=== PATIENT | female | born 1955 | race Asian ===

== ENCOUNTER 2017-03-26 12:54 | Day surgery (SDC) | payer OTHER ==
[2017-03-19 12:03] LABS: HEMATOCRIT 41.2 % (36.0-47.0); HGB HCT DIFFERENCE 0.8; MEAN CORPUSCULAR HEMOGLOBIN 31.4 pg (27.0-33.4); MEAN CORPUSCULAR HGB CONC 33.9 g/dL (32.0-36.0); MEAN CORPUSCULAR VOLUME 93 fl (80-97); RED BLOOD COUNT 4.46 10^6/uL (3.72-5.28); RED CELL DISTRIBUTION WIDTH 12.8 % (11.5-14.0); WHITE BLOOD COUNT 6.9 10^3/uL (4.0-10.5)
[2017-03-19 12:26] LABS: ANION GAP 14 (5-19); BLOOD UREA NITROGEN 12 mg/dL (7-20); CALCIUM 9.9 mg/dL (8.4-10.2); CARBON DIOXIDE 25 mmol/L (22-30); CHLORIDE 106 mmol/L (98-107); CREATININE RESULT 0.68 mg/dL (0.52-1.25); GLUCOSE 93 mg/dL (75-110); POTASSIUM 4.9 mmol/L (3.6-5.0); SODIUM 144.6 mmol/L (137-145)
--- NOTE | 2017-03-19 13:43 | EKG REPORT ---
SEVERITY:- BORDERLINE ECG - SINUS RHYTHM NONSPECIFIC ST-T CHANGES ANTERIOR LEADS : Confirmed by: Natan Rg MD 19-Mar-2017 13:42:27
[~2017-03-26 12:54] MED LIST: DEXAMETHASONE SOD PHOSPHATE INJ 4 MG/1 ML VIAL ONE; GLYCOPYRROLATE INJ 0.4 MG/2 ML VIAL ONE; KETOROLAC TROMETHAMINE 60 MG/2 ML SDV ONE; LACTATED RINGERS 1000 ML IV PRN; LEVOFLOXACIN 500 MG/D5W RTU 500 MG/100 ML RTUPB IV PRN; LIDOCAINE 0.5% INJ-PF (5 MG/ML) 50 ML SDV SUBCUT PRN; LIDOCAINE 2% INJ-PF (20 MG/ML) 2 ML AMPUL ONE; METOCLOPRAMIDE HCL INJ/PF 10 MG/2 ML SDV ONE; ONDANSETRON HCL INJ/PF 4 MG/2 ML SDV ONE; PHENYLEPHRINE HCL INJ/PF 10 MG/1 ML SDV ONE
[2017-03-26] MEDS ORDERED: BUPIVACAINE HCL 0.25% /EPINEPHRINE INJ/PF 30 ML SDV ONE (17:20)
[2017-03-26] MEDS ORDERED: KETAMINE HCL INJ 500 MG/10 ML VIAL ONE (17:52)
[2017-03-26] MEDS ORDERED: FENTANYL CITRATE INJ/PF 100 MCG/2 ML AMPUL ONE (17:52)
[2017-03-26] MEDS ORDERED: MIDAZOLAM 2 MG/2 ML INJ ONE (17:52)
[2017-03-26] MEDS ORDERED: ACETAMINOPHEN 100 ML IV ONE (17:53)
[2017-03-26] MEDS ORDERED: PROPOFOL INJ 200 MG/20 ML VIAL IV ONE (17:53)
[2017-03-26] MEDS ORDERED: MEPERIDINE HCL/PF INJ 25 MG/1 ML DISP.SYRIN IV PRN (17:56)
[2017-03-26] MEDS ORDERED: MORPHINE SULFATE 10 MG/ML INJ IV PRN (17:56)
[2017-03-26] MEDS ORDERED: PROMETHAZINE HCL INJ 25 MG/1 ML VIAL IV PRN ×2 (17:56)
[2017-03-26] MEDS ORDERED: FENTANYL CITRATE INJ/PF 100 MCG/2 ML AMPUL IV PRN ×3 (17:56)
[2017-03-26] MEDS ORDERED: ONDANSETRON HCL INJ/PF 4 MG/2 ML SDV IV PRN ×2 (17:56→18:56)
[2017-03-26] MEDS ORDERED: DIPHENHYDRAMINE HCL 50 MG/ML VIAL IV PRN (17:56)
[2017-03-26] MEDS ORDERED: BACITRACIN ZINC OINTMENT 15 GM ONE (18:36)
--- NOTE | 2017-03-26 18:51 | Operative Report ---
Operative Report DATE OF SURGERY: 03/26/17 PREOPERATIVE DIAGNOSIS: Symptomatic perianal skin tag POSTOPERATIVE DIAGNOSIS: Same OPERATION: Perianal skin tag excision SURGEON: ADRIAN GOULD ANESTHESIA: LMAC TISSUE REMOVED OR ALTERED: Anterior perianal skin tag COMPLICATIONS: None ESTIMATED BLOOD LOSS: Minimal INTRAOPERATIVE FINDINGS: Prominent 2 cm perianal skin tag anteriorly PROCEDURE: Informed consent was obtained. Patient was brought to the operating room and placed on the operating room table in the supine position. The procedure was done under LMAC. Patient was placed in a high lithotomy position and her perianal region was prepped and draped in the usual sterile fashion. Patient had a prominent anterior midline skin tag measuring 2 cm. Local anesthetic was administered. The skin tag was completely excised. Hemostasis was achieved with electrocautery. The wound was irrigated with local anesthetic. The wound was closed with running chromic suture with a slight gap at the external end to allow drainage. Patient tolerated procedure well with no apparent complications and was taken to the recovery area in stable condition.
--- NOTE | 2017-03-26 18:54 | PDOC DISCHARGE SUMMARY ---
Discharge Summary (SDC) - Discharge Final Diagnosis: Symptomatic perianal skin tag Date of Surgery: 03/26/17 Discharge Date: 03/26/17 Condition: Good Treatment or Instructions: Perianal skin tag excision. May discharge patient home when met discharge criteria. Sitz bath daily and after each bowel movement. Stay active but avoid strenuous activity. Follow-up with me next week. Prescriptions: Docusate Sodium [Colace 100 mg Capsule] 100 mg PO DAILY #30 capsule Oxycodone HCl/Acetaminophen [Percocet 5-325 mg Tablet] 1 tab PO ASDIR PRN #15 tablet PRN Reason: Discharge Diet: As Tolerated Discharge Activity: Activity As Tolerated - Stay active but avoid strenuous activity. Report the Following to Your Physician Immediately: Fever over 101 Degrees, Unusual Bleeding, Redness, Drainage-Foul Smelling
[2017-03-26] MEDS ORDERED: OXYCODONE-ACETAMINOPHEN 5-325 MG TABLET PO PRN (18:56)
[2017-03-26] MEDS ORDERED: RINGERS SOLUTION,LACTATED 1,000 ML IV PRN (18:56)
[2017-03-26 21:03] VITALS: BP 131/72
== END 2017-03-26 21:30 | disposition home or self-care (01) ==
LOC: OROUT 12:54 → 5 20:14 → OROUT 21:30
PROVIDERS: ATTEND Surgery
PROC: 0DBQXZZ Excision of Anus, External Approach (ICD-10-PCS; principal; 2017-03-26 15:15)
DX: K64.4 Residual hemorrhoidal skin tags (principal); Z79.899 Other long term (current) drug therapy; Z91.040 Latex allergy status
CPT/HCPCS: 93005; 36415; 85027; 80048; 88304 ×2; 93010; 46220; J2250; J1956; J3490 ×3; J1100; J1885; J3010; J2765; J2370; J2405; J2704; J0131; 902